=== PATIENT | female | born 1985 | race Caucasian/White ===

== ENCOUNTER 2019-01-19 16:38 | Emergency (ER) | payer OTHER ==
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
[2019-01-19 16:49] VITALS: BP 130/67; PULSE 100; TEMP 98; BMI 28.8
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
== END 2019-01-19 17:44 | disposition home or self-care (01) ==
LOC: JERFT 16:38
DX: M54.12 Radiculopathy, cervical region (principal); V89.2XXS Person injured in unspecified motor-vehicle accident, traffic, sequela; Z88.6 Allergy status to analgesic agent
CPT/HCPCS: 99281-25